=== PATIENT | male | born 1990 | race Caucasian/White ===

== ENCOUNTER → 2022-05-15 | Day surgery (SDC) | payer OTHER ==
[~2022-05-15] VITALS: Ht 177.8 cm; Wt 96.2 kg
[~2022-05-15] MED LIST: BUPRENORPHIN-N1 EACH SL
[2022-05-15 06:24] LABS: HEMOGLOBIN 15.2 gm/dl (14.0-17.5); RED BLOOD COUNT 4.95 M/UL (4.20-5.50); WHITE BLOOD COUNT 12.7 K/UL (4.5-11.0)
[2022-05-15 06:40] LABS: BUN/CREATININE RATIO 15 (0-10)
== END | disposition home or self-care (01) ==
LOC: OR 05:26
PROVIDERS: Orthopaedic Surgery
DX: S62.617A Displaced fracture of proximal phalanx of left little finger, initial encounter for closed fracture (principal); V29.9XXA Motorcycle rider (driver) (passenger) injured in unspecified traffic accident, initial encounter; Z72.0 Tobacco use
CPT/HCPCS: 73130; 76000; 80048; 85025; J0690; J1100; J1885; J2001; J2405; J2704